=== PATIENT | female | born 1955 | race Caucasian/White ===

== ENCOUNTER 2025-01-16 22:05 | Emergency (ER) | payer MEDICARE, OTHER ==
[~2025-01-16] VITALS: Ht 165.1 cm; Wt 75.5 kg
[2025-01-17] MEDS: MORPHINE 4 MG/ML 1 ML VIAL IV ONE (00:10)
[2025-01-17] MEDS: ONDANSETRON 4MG 2ML VIAL IV ONE (02:27)
[2025-01-17] MEDS: MORPHINE 4 MG/ML 1 ML VIAL IV PRN (02:38)
[2025-01-17] MEDS ORDERED: PERC5TAB12 PO (03:11)
[2025-01-17] MEDS: OXYCODONE/APAP 5MG/325MG(HOME DOSE PACK) PO ONE (03:34)
[2025-01-17 03:38] VITALS: BP 149/70; TEMP 97.8; O2SAT 95
[2025-01-17] MEDS ORDERED: MORPHINE 2 MG/ML 1 ML VIAL As Ordered ONE (05:49)
== END 2025-01-17 03:49 | disposition home or self-care (01) ==
LOC: M ED 22:05
DX: S42.295A Other nondisplaced fracture of upper end of left humerus, initial encounter for closed fracture (principal); S42.335A Nondisplaced oblique fracture of shaft of humerus, left arm, initial encounter for closed fracture; M47.812 Spondylosis without myelopathy or radiculopathy, cervical region; W01.0XXA Fall on same level from slipping, tripping and stumbling without subsequent striking against object, initial encounter; Y92.9 Unspecified place or not applicable; Y93.9 Activity, unspecified; Y99.9 Unspecified external cause status; K75.81 Nonalcoholic steatohepatitis (NASH)
CPT/HCPCS: 29105; 70450; 72125; 73030; 73060; 73080; 93041; 94760; 96374; 96375; 99285; J2405